=== PATIENT | female | born 1955 | race Caucasian/White ===

== ENCOUNTER 2016-08-28 10:27 | Day surgery (SDCO) | payer MEDICARE, OTHER ==
[~2016-08-28] VITALS: Ht 170.2 cm; Wt 100.3 kg
[~2016-08-28 10:27] MED LIST: ASCORBIC ACID500 MG PO; ASPIRIN CHEWABL81 MG PO; CELEXA20 MG PO; FEOSOL325 MG PO; HCTZ12.5 MG PO; LOVASTATIN10 MG PO; MELOXICAM15 MG PO; OXYCODONE HCL15 MG PO; REQUIP1 MG PO; TRAZADONE; XARELTO10 MG PO; ZOLPIDEM 5MG TAB5 MG PO
[2016-08-28 10:52] LABS: BASOPHIL 0.4 % (0-2); EOSINOPHIL 0.6 % (0-5); HCT 42.4 % (37.0-47.0); HGB 14.1 g/dl (12.5-16.0); LYMPHOCYTE 11.7 % (15-48); MCHC 33.3 g/dL (32.0-36.0); MCV 87.2 fL (78.0-100.0); MONOCYTE 2.9 % (0-12); MPV 9.5 fL (6.0-9.5); NEUTROPHIL 84.4 % (41-80); PLT 328 K/uL (150-400); RBC 4.86 M/uL (4.20-5.40); RDW 14.6 % (11.5-14.0); WBC 9.8 K/uL (4.0-10.5)
[2016-08-28 11:05] LABS: INR 1.15 (0.9-1.2); PROTHROMBIN TIME 14.3 SECONDS (11.7-14.0); PTT 27.7 SECONDS (23.2-31.4)
[2016-08-28 11:09] LABS: CKMB 1.33 ng/mL (0.97-4.94); MYOGLOBIN 21 ng/mL (26-65); TROPONIN T < 0.010 ng/mL
[2016-08-28 11:10] LABS: ALBUMIN 4.3 g/dL (3.4-4.8); BILIRUBIN - TOTAL 0.7 mg/dL (0.1-1.0); CREATININE 0.6 mg/dL (0.5-1.0); GLOBULIN (CALCULATION) 3.3 g/dL (2.2-4.2); MAGNESIUM 2.25 mg/dL (1.40-2.10); POTASSIUM 3.2 mmol/L (3.5-5.1); PRO-BNP 169 pg/mL (0-125); TOTAL PROTEIN 7.6 g/dL (6.4-8.3)
[2016-08-29 04:30] LABS: HCT 36.5 % (37.0-47.0); HGB 11.9 g/dl (12.5-16.0); MCH 28.4 pg (25.0-31.0); MCHC 32.6 g/dL (32.0-36.0); MCV 87.1 fL (78.0-100.0); MPV 9.4 fL (6.0-9.5); RBC 4.19 M/uL (4.20-5.40); RDW 14.4 % (11.5-14.0); WBC 11.5 K/uL (4.0-10.5)
[2016-08-29 04:49] LABS: CREATININE 0.5 mg/dL (0.5-1.0)
[2016-08-30 06:07] LABS: HCT 35.4 % (37.0-47.0); HGB 11.6 g/dl (12.5-16.0); MCH 28.9 pg (25.0-31.0); MCHC 32.8 g/dL (32.0-36.0); MCV 88.3 fL (78.0-100.0); MPV 9.7 fL (6.0-9.5); RBC 4.01 M/uL (4.20-5.40); RDW 14.9 % (11.5-14.0); WBC 10.5 K/uL (4.0-10.5)
[2016-08-30 06:33] LABS: CREATININE 0.7 mg/dL (0.5-1.0); POTASSIUM 3.5 mmol/L (3.5-5.1)
[2016-08-31] MEDS ORDERED: DUONEB 2.5-0.5M1 AMP NEB (16:14)
[2016-08-31] MEDS ORDERED: LEVAQUIN750 MG PO (16:14)
[2016-08-31] MEDS ORDERED: EQUATE ALLERGY MED (16:14)
[2016-08-31] MEDS ORDERED: PREDNISONE 10MG10 MG PO (16:15)
== END 2016-08-31 16:34 | disposition home or self-care (01) ==
LOC: FER 10:27 → FMS 13:00 → FICU 13:00 → FMS 08-29 12:52
PROVIDERS: Emergency Medicine; Internal Medicine; ADMIT Internal Medicine Adolescent Medicine
DX: J44.1 Chronic obstructive pulmonary disease with (acute) exacerbation (principal); J20.9 Acute bronchitis, unspecified; J44.0 Chronic obstructive pulmonary disease with (acute) lower respiratory infection; I10 Essential (primary) hypertension; G25.81 Restless legs syndrome; K21.9 Gastro-esophageal reflux disease without esophagitis; E78.5 Hyperlipidemia, unspecified; F17.210 Nicotine dependence, cigarettes, uncomplicated; M19.90 Unspecified osteoarthritis, unspecified site; Z90.710 Acquired absence of both cervix and uterus; Z79.82 Long term (current) use of aspirin; Z79.899 Other long term (current) drug therapy; E87.6 Hypokalemia; G89.4 Chronic pain syndrome
CPT/HCPCS: 36415; 36600; 71010; 80048; 80053; 82550; 82553; 82803; 83735; 83874; 83880; 84484; 85025; 85610; 85730; 87804; 87899; 93005; 94640; G0378; J1885; J2930

== ENCOUNTER 2021-12-07 06:20 | Day surgery (SDC) | payer MEDICARE, OTHER ==
[~2021-12-07] VITALS: Ht 170 cm; Wt 100.0 kg
[~2021-12-07 06:20] MED LIST changes: +DULOXETINE HCL60 MG PO; +DUONEB 2.5-0.5M1 AMP NEB; +EQUATE ALLERGY MED; +GABAPENTIN400 MG PO; +GABAPENTIN600 MG PO; +GLIMEPIRIDE1 MG PO; +IBUPROFEN800 MG PO; +LASIX20 MG PO; +LEVAQUIN750 MG PO; +MONTELUKAST SOD10 MG PO; +NARCAN4 MG; +NEURONTIN300 MG PO; +OXYCODONE HCL15 M1 PO; +PANTOPRAZOLE SO40 MG PO; +POTASSIUM CHLO20 ME2 PO; +PREDNISONE 10MG10 MG PO; +VENTOLIN HFA IN18 GM INH
[2021-12-07] MEDS ORDERED: CHILDREN'S ASPI81 MG PO (13:28)
--- NOTE | 2021-12-07 14:02 | NUR ---
SPOKE TO PT SHE WANTS A HOME HEALTH TO COME TO HER HOME AND DOES NOT WANT [facility] AT THIS TIME; I DID CALL AND NOTIFY [facility] AT [facility] AND LET HER KNOW
[2021-12-08 07:10] LABS: BASOPHIL 0.5 % (0-2); EOSINOPHIL 0.5 % (0-7); HCT 36.7 % (37.0-47.0); LYMPHOCYTE 17.9 % (15-48); MCH 25.2 pg (25.0-31.0); MCV 84.2 fL (78.0-100.0); MONOCYTE 8.7 % (0-12); MPV 9.9 fL (6.0-9.5); NEUTROPHIL 71.8 % (41-80); NRBC 0; PLT 316 K/uL (150-400); RBC 4.36 M/uL (4.20-5.40); RDW 18.6 % (11.5-14.0)
[2021-12-08 07:15] LABS: CREATININE 0.79 mg/dL (0.51-0.95); POTASSIUM 4.2 mmol/L (3.5-5.1)
[2021-12-08] MEDS ORDERED: OXYCODONE HCL15 M1 PO (17:30)
== END 2021-12-08 12:48 | disposition home health service (06) ==
LOC: FAS 06:20 → FMS 09:41 → FAS 12-08 12:48
PROVIDERS: Orthopaedic Surgery
DX: M17.12 Unilateral primary osteoarthritis, left knee (principal); I10 Essential (primary) hypertension; E11.9 Type 2 diabetes mellitus without complications; E78.5 Hyperlipidemia, unspecified; J44.9 Chronic obstructive pulmonary disease, unspecified; Z79.82 Long term (current) use of aspirin; Z79.84 Long term (current) use of oral hypoglycemic drugs; Z79.899 Other long term (current) drug therapy
CPT/HCPCS: 36415; 73560; 80048; 82962; 85025; 86850; 86900; 86901; 94010; 94760; 97110; 97162; 97166; 97530-GP; C1713; C1776; J0171; J1100; J1170; J1885; J2250; J2270; J2370; J2405; J2704; J2795; J3010; J3370; J7040; J7120